=== PATIENT | male | born 1960 | race Two or more races ===

== ENCOUNTER 2022-03-25 08:11 | Outpatient (CLI) | payer MEDICARE | END 2022-03-25 08:12 | disposition critical access hospital (66) | LOC: EMS 08:11 | DX: R42 Dizziness and giddiness (principal); R55 Syncope and collapse; R11.2 Nausea with vomiting, unspecified | CPT/HCPCS: A0425; A0429 ==

== ENCOUNTER 2022-03-25 08:28 | Emergency (ER) | payer MEDICARE ==
[2022-03-25] MEDS ORDERED: SODIUM CHLORIDE 0.9% 1,000 ML IV STA (08:51)
--- NOTE | 2022-03-25 08:52 | ED Physician Documentation ---
PD HPI SYNCOPE - Stated complaint Stated Complaint: DIZZY/SYNCOPE/VOMITING - Chief complaint Chief Complaint: Neuro - History obtained from History obtained from: Patient, EMS - History of Present Illness Witnessed: Witnessed Timing - onset: How many hours ago (1) Duration: Seconds Preceding symptoms: Nausea / vomiting, Light headed. No: Chest pain, Dyspnea, Abdominal pain Associated symptoms: No: Chest pain, Dyspnea, Abdominal pain Contributing factors: Noxious stimulae (he felt sick with nausea and vomited. As he stood up after vomiting, he felt lightheaded and then felt faint. He sat himself down to the ground. No hard fall. Awoke seconds later. Feeling okay after that.). No: Recent med change, Decreased PO intake Injury occurred: No: Fell, Head injury, Neck injury Treatment CLINICAL RECRUITER: Fluids Similar symptoms before: Has not had sx before Recently seen: Not recently seen Review of Systems Constitutional: denies: Fever, Chills Nose: denies: Rhinorrhea / runny nose, Congestion Cardiac: denies: Chest pain / pressure Respiratory: denies: Dyspnea GI: reports: Nausea, Vomiting (just abruptly couple of times, now feeling better.). denies: Abdominal Pain, Constipation, Diarrhea Neurologic: denies: Altered mental status, Headache PD PAST MEDICAL HISTORY - Past Medical History Cardiovascular: None Respiratory: None Neuro: None Endocrine/Autoimmune: None - Present Medications Home Medications: Ambulatory Orders Medication Instructions Recorded Confirmed Aspirin Chewable [[place] 81 mg PO DAILY 03/25/22 03/25/22 Aspirin] Cholecalciferol (Vitamin D3) 50 mcg PO DAILY 03/25/22 03/25/22 [Vitamin D3] EPINEPHrine [Epinephrine] 0.3 ml IM ONCE PRN 03/25/22 03/25/22 Gabapentin [Neurontin] 600 mg PO TID 03/25/22 03/25/22 HYDROcodone bitartrate 1 cap PO DAILY 03/25/22 03/25/22 [Hydrocodone Bitartrate ER] HYDROcodone/ACET 10/325 [[place] 10 1 tab PO Q6HR PRN 03/25/22 03/25/22 mg/325 mg] Meloxicam [Mobic] 15 mg PO DAILY 03/25/22 03/25/22 [place]-3/Dha/Epa/Fish Oil [Fish Oil 1 cap PO DAILY 03/25/22 03/25/22 1,000 mg Softgel] Omeprazole 40 mg PO DAILY 03/25/22 03/25/22 Rosuvastatin Calcium [Crestor] 20 mg PO DAILY 03/25/22 03/25/22 - Allergies Allergies/Adverse Reactions: Allergies Allergy/AdvReac Type Severity Reaction Status Date / Time peanut Allergy Anaphylaxis Verified 03/25/22 09:02 PD ED PE NORMAL - Vitals Vital signs reviewed: Yes - General General: Alert and oriented X 3, No acute distress, Well developed/nourished - HEENT HEENT: Moist mucous membranes, Pharynx benign - Neck Neck: Supple, no meningeal sign, No adenopathy - Cardiac Cardiac: RRR, No murmur - Respiratory Respiratory: No respiratory distress, Clear bilaterally - Abdomen Abdomen: Normal bowel sounds, Soft, Non tender, Non distended - Back Back: No CVA TTP - Derm Derm: Normal color, Warm and dry - Extremities Extremities: No tenderness to palpate, Normal ROM s pain - Neuro Neuro: Alert and oriented X 3, No motor deficit, No sensory deficit, Normal speech Eye Opening: Spontaneous Motor: Obeys Commands Verbal: Oriented GCS Score: 15 Results - Vitals Vitals: Oxygen O2 Source Room air - EKG (time done) 08:30 Rate: Rate (enter#) (59) Rhythm: NSR [place]: Normal Intervals: Normal [place] QRS: Normal Ischemia: Normal ST segments. No: ST elevation c/w ischemia, ST depression - Labs Labs: Laboratory Tests 03/25/22 03/25/22 03/25/22 09:08 09:08 09:08 WBC 9.8 RBC 4.94 Hgb 16.0 Hct 46.9 MCV 94.9 H MCH 32.4 H MCHC 34.1 RDW 12.7 Plt Count 180 MPV 10.5 Neut # (Auto) 7.3 H Lymph # (Auto) 1.5 [place] # (Auto) 0.7 Eos # (Auto) 0.2 Baso # (Auto) 0.0 Absolute Nucleated RBC 0.00 Nucleated RBC % 0.0 D-Dimer 258.2 H Sodium 139 Potassium 3.7 Chloride 104 Carbon Dioxide 26 Anion Gap 9.0 BUN 16 Creatinine 1.0 Estimated GFR (MDRD) 76 L Glucose 101 H Calcium 9.5 Magnesium 2.0 Total Bilirubin 0.7 AST 15 ALT 11 Alkaline Phosphatase 73 Troponin I High Sens B-Natriuretic Peptide Total Protein 7.2 Albumin 4.3 Globulin 2.9 Albumin/Globulin Ratio 1.5 Lipase 26 03/25/22 03/25/22 03/25/22 09:08 09:08 10:11 WBC RBC Hgb Hct MCV MCH MCHC RDW Plt Count MPV Neut # (Auto) Lymph # (Auto) [place] # (Auto) Eos # (Auto) Baso # (Auto) Absolute Nucleated RBC Nucleated RBC % D-Dimer Sodium Potassium Chloride Carbon Dioxide Anion Gap BUN Creatinine Estimated GFR (MDRD) Glucose Calcium Magnesium Total Bilirubin AST ALT Alkaline Phosphatase Troponin I High Sens 7.4 6.4 B-Natriuretic Peptide 15 Total Protein Albumin Globulin Albumin/Globulin Ratio Lipase PD MEDICAL DECISION MAKING - ED course Complexity details: reviewed results, considered differential (seems like va sovagal syncope related to the vomiting. Abd exam benign so not feeling significant cause for the vomiting. ), d/w patient Departure - Departure Disposition: 01 Home, Self Care Clinical Impression: Syncope Qualifiers: Syncope type: unspecified Qualified Code(s): R55 - Syncope and collapse Condition: Stable Record reviewed to determine appropriate education?: Yes Instructions: ED Fainting Unkn Cause Comments: No signs of significant process such as heart attack, heart failure, pneumonia, blood clots, anemia, low blood sugar or electrolyte problems. Your heart rhythm is also been normal here as is your blood pressure. I do not see any serious causes for your fainting episode though I cannot really explain why you did. Stay well-hydrated. Continue usual medications and activity. Follow-up with your primary care if any further episodes or symptoms of lightheadedness at times. Consideration could be wearing a heart monitor over the course of a week to make sure you do not have any irregular rhythms at times. Discharge Date/Time: 03/25/22 11:19
[2022-03-25 09:16] LABS: BASOPHILS % (AUTO) 0.4 %; EOSINOPHILS # (AUTO) 0.2 10^3/uL (0.0-0.7); EOSINOPHILS % (AUTO) 2.2 %; HCT - HEMATOCRIT 46.9 % (42.0-52.0); LYMPHOCYTES # (AUTO) 1.5 10^3/uL (1.5-3.5); LYMPHOCYTES % (AUTO) 15.7 %; MEAN CORPUSCULAR HEMOGLOBIN 32.4 pg (27.0-31.0); MEAN CORPUSCULAR HGB CONC 34.1 g/dL (32.0-36.0); MEAN CORPUSCULAR VOLUME 94.9 fL (80.0-94.0); MEAN PLATELET VOLUME 10.5 fL (7.4-11.4); MONOCYTES # (AUTO) 0.7 10^3/uL (0.0-1.0); MONOCYTES % (AUTO) 7.5 %; NEUTROPHILS # (AUTO) 7.3 10^3/uL (1.5-6.6); PLT - PLATELET COUNT 180 10^3/uL (130-450); RED BLOOD COUNT 4.94 10^6/uL (4.70-6.10); RED CELL DISTRIBUTION WIDTH 12.7 % (12.0-15.0); WHITE BLOOD COUNT 9.8 x10^3/uL (4.8-10.8)
[2022-03-25 09:32] LABS: ALBUMIN 4.3 g/dL (3.2-5.5); ALBUMIN/GLOBULIN RATIO 1.5 (1.0-2.2); BILIRUBIN,TOTAL 0.7 mg/dL (0.2-1.0); CALCIUM 9.5 mg/dL (8.5-10.3); POTASSIUM 3.7 mmol/L (3.5-5.0); TOTAL PROTEIN 7.2 g/dL (6.7-8.2)
[2022-03-25 11:02] VITALS: BP 166/96
== END 2022-03-25 11:19 | disposition home or self-care (01) ==
LOC: ED 08:28
DX: R55 Syncope and collapse (principal)
CPT/HCPCS: 36415; 80053; 83690; 83735; 83880; 84484; 85025; 85379; 93005; 96360; 96361; 99282